=== PATIENT | male | born 1995 | race African-American/Black ===

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

== ENCOUNTER 2017-07-01 20:13 | Emergency (ER) | payer MEDICAID ==
[~2017-07-01] VITALS: Ht 185.4 cm; Wt 88.5 kg
[~2017-07-01 20:13] MED LIST changes: +CYCLOBENZAPRINE10 MG ORAL
[2017-07-01 20:32] VITALS: BP 132/69
[2017-07-01] MEDS ORDERED: ZYRTEC10 M3 ORAL (21:20)
[2017-07-01] MEDS ORDERED: PREDNISONE20 MG ORAL (21:20)
[2017-07-01 21:23] VITALS: BP 132/69
--- NOTE | 2017-07-01 21:41 | Emergency Room Report ---
History of Present Illness General Chief Complaint: General Complaint Source: Patient Present Illness HPI 21-year-old male presents with difficulty breathing on her right nostril States he looked in the mirror and saw that there was some swelling inside his nose He has history of allergic rhinitis Denies chest pain, shortness of breath, fevers or chills Denies sinus congestion, headache Allergies: Coded Allergies: CHOCOLATE FLAVOR (Verified Allergy, Unknown, 07/03/15) PEANUT (Verified Allergy, Unknown, 07/03/15) TOMATO (Verified Allergy, Unknown, 07/03/15) Patient History Past Medical History: none Past Surgical History: none Pertinent Family History: none Social History: Denies: smoking, alcohol use, drug use Immunizations: UTD Reviewed Nursing Documentation: PMH: Agreed; PSxH: Agreed Nursing Documentation-PMH Past Medical History: No Stated History Review of Systems All Other Systems: negative except mentioned in HPI Physical Exam Vital Signs Date Time Temp Pulse Resp B/P (MAP) Pulse Ox O2 Delivery O2 Flow Rate FiO2 07/01/17 20:26 98.2 83 16 132/69 97 Room Air 98.2 Sp02 EP Interpretation: reviewed, normal General Appearance: normal inspection, well appearing, no apparent distress, alert, GCS 15, non-toxic Head: normocephalic, atraumatic Eyes: bilateral eye PERRL, bilateral eye EOMI ENT: normal ENT inspection, hearing grossly normal, normal pharynx, no angioedema, normal voice, TMs + canals normal, uvula midline, moist mucus membranes, other - Nose: Right >Left swollen turbinates, nasal passage not completely occuluded Neck: normal inspection, full range of motion, supple, thyroid normal, no meningismus, no bony tend Respiratory: normal inspection, lungs clear, normal breath sounds, no rhonchi, no respiratory distress, no retraction, no accessory muscle use, no wheezing, speaking full sentences Cardiovascular #1: regular rate, rhythm, no edema, no JVD, normal capillary refill Gastrointestinal: normal inspection, normal bowel sounds, non tender, soft, no mass, no peritonitis, non-distended, no guarding, no hernia, no pulsatile mass Genitourinary: no CVA tenderness Musculoskeletal: normal inspection, back normal, normal range of motion, no calf tenderness, pelvis stable, Danis's Sign negative Neurologic: normal inspection, alert, oriented x3, responsive, parts salesperson III-XII nml as tested, motor strength/tone normal, cerebellar normal, normal gait, speech normal Psychiatric: normal inspection, judgement/insight normal, mood/affect normal, no suicidal/homicidal ideation, no delusions Skin: normal inspection, normal color, no rash Lymphatic: normal inspection, no adenopathy Medical Decision Making Diagnostic Impression: Primary Impression: Rhinitis Qualified Codes: J30.2 - Other seasonal allergic rhinitis ER Course VSS, afebrile Turbinate inflammation likely d/t allergic rhinitis Will Rx Zyrtec, prednisone PMD followup DC home Last Vital Signs Date Time Temp Pulse Resp B/P (MAP) Pulse Ox O2 Delivery O2 Flow Rate FiO2 07/01/17 21:23 98.2 86 16 132/69 97 Room Air 98.2 Status: improved Disposition: HOME, SELF-CARE Condition: Improved Scripts Prednisone* (PREDNISONE*) 20 Mg Tablet 40 MG ORAL DAILY for 5 Days, #10 TAB Prov: SUREHS BEARDEN M.D. 07/01/17 Cetirizine Hcl (ZYRTEC) 10 Mg Capsule 10 MG ORAL DAILY for 7 Days, #14 CAP 0 Refills Prov: SURESH BEARDEN M.D. 07/01/17 Patient Instructions: Allergic Rhinitis Additional Instructions: - Take Zyrtec daily for allergic rhinitis - Take prednisone 40mg next 3 days - Followup with primary doc in 1 week SURESH BEARDEN M.D. Jul 01, 2017 21:41
== END 2017-07-01 21:24 | disposition home or self-care (01) ==
LOC: EMR 21:05
DX: J31.0 Chronic rhinitis (principal); Z91.010 Allergy to peanuts; Z91.018 Allergy to other foods
CPT/HCPCS: 99284

== ENCOUNTER 2017-07-19 21:04 | Emergency (ER) | payer MEDICAID ==
[~2017-07-19] VITALS: Ht 188 cm; Wt 88.5 kg
[~2017-07-19 21:04] MED LIST changes: +PREDNISONE20 MG ORAL; +ZYRTEC10 M3 ORAL
[2017-07-19] MEDS ORDERED: NKM (21:12)
[2017-07-19 21:15] VITALS: BP 130/79
[2017-07-19] MEDS ORDERED: AMOXICILLIN500 MG ORAL (21:50)
[2017-07-19] MEDS ORDERED: IBUPROFEN600 MG ORAL (21:50)
[2017-07-19] MEDS ORDERED: LIDOCAINE VISC100 ML ORAL (21:50)
[2017-07-19] MEDS ORDERED: Lidocaine 2% Visc 15ml soln ORAL ONE (22:00)
--- NOTE | 2017-07-19 23:41 | Emergency Room Report ---
History of Present Illness General Chief Complaint: Sore Throat Source: Patient Present Illness HPI The patient is a 21-year-old male who presented after increased sore throat. This of been present for several days. Patient gradual onset of symptoms. He reported having increased painful swallowing. Patient prior history of tonsillitis. He denies any cough. He reports having additionally some left earache. He denies any medication allergies. Allergies: Coded Allergies: CHOCOLATE FLAVOR (Verified Allergy, Unknown, 07/19/17) PEANUT (Verified Allergy, Unknown, 07/19/17) TOMATO (Verified Allergy, Unknown, 07/19/17) Patient History Past Medical History: see triage record Reviewed Nursing Documentation: PMH: Agreed; PSxH: Agreed Nursing Documentation-PMH Hx Gastrointestinal Problems: No - tonsillitis Review of Systems All Other Systems: negative except mentioned in HPI Physical Exam Vital Signs Date Time Temp Pulse Resp B/P (MAP) Pulse Ox O2 Delivery O2 Flow Rate FiO2 07/19/17 21:08 98.2 87 16 130/79 95 Room Air 98.2 General Appearance: well appearing, no apparent distress, alert, GCS 15 Head: normocephalic, atraumatic ENT: hearing grossly normal, normal voice, tonsillar swelling, tonsillar exudate Neck: full range of motion, supple Respiratory: no respiratory distress, speaking full sentences Cardiovascular #1: normal inspection, normal peripheral pulses, regular rate, rhythm, no edema Musculoskeletal: no calf tenderness Neurologic: normal gait Psychiatric: mood/affect normal Skin: no rash Medical Decision Making Diagnostic Impression: Primary Impression: Tonsillitis ER Course Patient presented for sore throat. Differential diagnosis included but was not limited to meningitis, exudative tonsillitis, retropharyngeal abscess, epiglottitis, strep pharyngitis. Patient has a benign exam and does not appear to require any further imaging or laboratory testing at this time. The patient appears to have an exudative pharyngitis. The patient was given prescription for oral antibiotics and ibuprofen. The patient is advised to follow up with primary care doctor in 1-2 days. Patient is advised to return if any worsening condition or if any changes in status that are concerning. This report is dictated with [employer] retail pos specialist software which may occasionally lead to discrepancies related to use of this software. Last Vital Signs Date Time Temp Pulse Resp B/P (MAP) Pulse Ox O2 Delivery O2 Flow Rate FiO2 07/19/17 22:00 98.2 87 16 130/79 95 Room Air 98.2 Status: improved Disposition: HOME, SELF-CARE Condition: Stable Scripts Lidocaine HCl 2% Viscous (Lidocaine HCl 2% Viscous) 100 Ml Solution 15 ML ORAL QID, #120 ML Prov: Hiro Rendon 07/19/17 Ibuprofen* (MOTRIN*) 600 Mg Tablet 600 MG ORAL Q8H PRN for For Pain, #30 TAB 0 Refills Prov: Hiro Rendon 07/19/17 Amoxicillin* (AMOXIL*) 500 Mg Capsule 500 MG ORAL THREE TIMES A DAY, #30 CAP Prov: Hiro Rendon 07/19/17 Referrals: [facility],REF (PCP) Patient Instructions: Tonsillitis Hiro Rendon July 19, 2017 23:41
== END 2017-07-19 22:45 | disposition home or self-care (01) ==
LOC: EMR 22:41
DX: J03.90 Acute tonsillitis, unspecified (principal); Z91.048 Other nonmedicinal substance allergy status; Z91.018 Allergy to other foods
CPT/HCPCS: 99284

== ENCOUNTER 2019-07-22 01:19 | Emergency (ER) | payer SELFPAY ==
[~2019-07-22] VITALS: Ht 188 cm; Wt 77.1 kg
[~2019-07-22 01:19] MED LIST changes: +AMOXICILLIN500 MG ORAL; +LIDOCAINE VISC100 ML ORAL; +NKM
[2019-07-22 01:30] VITALS: BP 122/70
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
[2019-07-22] MEDS ORDERED: IBUPROFEN600 M1 ORAL (01:41)
[2019-07-22 02:34] VITALS: BP 125/75
--- NOTE | 2019-07-22 02:35 | Diagnostic Imaging Report ---
EXAM: CT Head Without Intravenous Contrast CLINICAL HISTORY: TRAUMA TECHNIQUE: Axial computed tomography images of the head/brain without intravenous contrast. CTDI is 53 mGy and DLP is 1179 mGy-cm. One or more of the following dose reduction techniques were used: automated exposure control, adjustment of the mA and/or kV according to patient size, use of iterative reconstruction technique. COMPARISON: No relevant prior studies available. FINDINGS: Brain: No hemorrhage or mass effect. Ventricles: No hydrocephalus. Bones/joints: Unremarkable. Soft tissues: Unremarkable. Sinuses: Unremarkable. Mastoid air cells: Clear. IMPRESSION: No acute hemorrhage, hydrocephalus, or mass effect.
== END 2019-07-22 02:34 | disposition home or self-care (01) ==
LOC: EMR 01:35
DX: S09.90XA Unspecified injury of head, initial encounter (principal); V49.88XA Car occupant (driver) (passenger) injured in other specified transport accidents, initial encounter; Y93.89 Activity, other specified; Y92.414 Local residential or business street as the place of occurrence of the external cause; Z91.010 Allergy to peanuts; Z91.018 Allergy to other foods
CPT/HCPCS: 70450; 99284

== ENCOUNTER 2019-08-15 20:58 | Emergency (ER) | payer SELFPAY ==
[~2019-08-15] VITALS: Ht 188 cm; Wt 68.0 kg
[~2019-08-15 20:58] MED LIST changes: +IBUPROFEN600 M1 ORAL
[2019-08-15 21:23] VITALS: BP 110/62
--- NOTE | 2019-08-15 21:23 | NUR ---
ED Nurse Note: Pt ambulated into ed from home CO pain in right hand d/t laceration from knife while cutting oranges at home. Pt vss no ss of distress noted. laceration approximately 2" long. Awaiting ERMD at bedside
--- NOTE | 2019-08-15 21:32 | NUR ---
ED Nurse Note: ERMD at bedside
[2019-08-15] MEDS ORDERED: Tetanus/Diptheria/Pertussis IM ONE (21:45)
--- NOTE | 2019-08-15 21:45 | NUR ---
ED Nurse Note: All medications administered, pt tolerated well. wound irrigated and prepped for suture.
--- NOTE | 2019-08-15 22:14 | NUR ---
ED Nurse Note: ERMD at bedside for sutures
[2019-08-15] MEDS ORDERED: Lidocaine 1% Plain 30 ml INJ ONE (22:15)
--- NOTE | 2019-08-15 22:40 | NUR ---
ED Nurse Note: Suture area cleaned and bandaged, medication applied. Will continue to monitor
[2019-08-15] MEDS ORDERED: Bacitracin Oint UD TOPIC ONE (22:45)
[2019-08-15 23:08] VITALS: BP 110/62
--- NOTE | 2019-08-18 16:50 | Emergency Room Report ---
History of Present Illness General Chief Complaint: Laceration Source: Patient Present Illness HPI 23-year-old male presents with a laceration to his right hand. States he cut his hand tonight while cutting vegetables. Tetanus unknown. Pain is dull, 5 out of 10, nonradiating. States he is able to move all his fingers. No other aggravating relieving factors. Denies any other associated symptoms Allergies: Coded Allergies: CHOCOLATE FLAVOR (Verified Allergy, Unknown, 07/19/17) PEANUT (Verified Allergy, Unknown, 07/19/17) TOMATO (Verified Allergy, Unknown, 07/19/17) COVID-19 Screening Contact w/high risk pt: No Recent Travel to affected area: No Experienced COVID-19 symptoms?: No COVID-19 Testing performed SUPERVISOR SHIPPING ROOM: No Patient History Past Medical History: none Past Surgical History: none Pertinent Family History: none Social History: Denies: smoking, alcohol use, drug use Immunizations: UTD Reviewed Nursing Documentation: PMH: Agreed; PSxH: Agreed Nursing Documentation-PMH Hx Gastrointestinal Problems: No - tonsillitis Review of Systems All Other Systems: negative except mentioned in HPI Physical Exam Vital Signs Date Time Temp Pulse Resp B/P (MAP) Pulse Ox O2 Delivery O2 Flow Rate FiO2 08/15/19 21:13 98.4 83 16 110/62 (78) 100 Room Air Sp02 EP Interpretation: reviewed, normal General Appearance: no apparent distress, alert, GCS 15, non-toxic Head: normocephalic Eyes: bilateral eye normal inspection, bilateral eye PERRL ENT: normal ENT inspection Neck: normal inspection Respiratory: normal inspection Cardiovascular #1: normal inspection Gastrointestinal: non tender Rectal: deferred Genitourinary: no CVA tenderness Musculoskeletal: back normal, normal range of motion, gait/station normal, non- tender Neurologic: alert, motor strength/tone normal, oriented x3, sensory intact, responsive, speech normal Psychiatric: judgement/insight normal, memory normal, mood/affect normal, no suicidal/homicidal ideation Skin: laceration - 3cm stellate laceration to palm R hand Lymphatic: normal inspection Procedures Laceration/Wound Repair Laceration/Wound Repair : Consent: Verbal Wound Location: upper extremity - R hand Wound's Depth, Shape: stellate Wound Explored: clean Betadine Prep?: Yes Anesthesia: 1% Lidocaine Wound Debrided: minimal Wound Repaired With: sutures Suture Size/Type: 5:0, nylon Layer Closure?: No Sterile Dressing Applied?: Yes Splint Applied?: No Sling Applied?: No Patient Tolerated: Well Complications: None Medical Decision Making Diagnostic Impression: Primary Impression: Laceration ER Course Hospital Course 23-year-old M presents to ED s/p laceration R palm using knife Clinical course Patient placed on stretcher. After initial history and physical I ordered tetanus shot. Anesthesia provided with lidocaine. Laceration repaired w/o complication. Dressing applied. I discussed findings with patient. Safe for discharge for close outpatient follow-up. Diagnosis - laceration Stable and discharged to home. wound Care instructions given. Followup with PMD in 10-12 days for suture removal. Return to ED if any signs of infection develop Last Vital Signs Date Time Temp Pulse Resp B/P (MAP) Pulse Ox O2 Delivery O2 Flow Rate FiO2 08/15/19 23:08 98.4 83 16 110/62 100 Room Air Disposition: HOME, SELF-CARE Condition: Stable [facility]: [facility] Patient Instructions: Laceration Care, Adult Additional Instructions: return to ED in 10-12 days for suture removal Alejandro Abdullahi MD Aug 18, 2019 16:50
== END 2019-08-15 23:08 | disposition home or self-care (01) ==
LOC: EMR 21:42
DX: S61.411A Laceration without foreign body of right hand, initial encounter (principal); W26.0XXA Contact with knife, initial encounter; Y92.9 Unspecified place or not applicable; Z91.010 Allergy to peanuts; Z91.018 Allergy to other foods; Z23 Encounter for immunization
CPT/HCPCS: 12002; 90471; 90715; 99283; J2001

== ENCOUNTER 2020-06-05 12:58 | Emergency (ER) | payer MEDICAID ==
--- NOTE | 2020-06-05 13:37 | NUR ---
ED Nurse Note: Patient not in the waiting room.
--- NOTE | 2020-06-05 13:45 | NUR ---
ED Nurse Note: Patient left without being triaged.
--- NOTE | 2020-06-09 06:42 | Emergency Room Report ---
History of Present Illness General Chief Complaint: To Be Triaged Present Illness Allergies: Coded Allergies: CHOCOLATE FLAVOR (Verified Allergy, Unknown, 07/19/17) PEANUT (Verified Allergy, Unknown, 07/19/17) TOMATO (Verified Allergy, Unknown, 07/19/17) COVID-19 Screening Contact w/high risk pt: No Recent Travel to affected area: No Experienced COVID-19 symptoms?: No Nursing Documentation-PMH Hx Gastrointestinal Problems: No - tonsillitis Medical Decision Making Diagnostic Impression: Primary Impression: lwbs ER Course Patient left without being seen Status: unchanged Disposition: LEFT W/OUT BEING SEEN Condition: Unknown Referrals: [facility],REFERR[facility] (PCP) Alejandro Abdullahi MD Jun 09, 2020 06:42
== END 2020-06-05 14:15 | disposition left against medical advice (07) ==
LOC: EMR 13:40
DX: Z53.21 Procedure and treatment not carried out due to patient leaving prior to being seen by health care provider (principal)